=== PATIENT | female | born 1990 | race African-American/Black ===

== ENCOUNTER 2016-09-21 14:40 | Emergency (ER) | payer MEDICAID ==
[~2016-09-21] VITALS: Ht 170.2 cm; Wt 77.0 kg
[~2016-09-21 14:40] MED LIST: PREN-88 PO
[2016-09-21] MEDS ORDERED: PROV10 IM (14:48)
[2016-09-21] MEDS ORDERED: KETOROLAC 60MG/2ML VIAL IM ONE (15:45)
[2016-09-21 16:20] LABS: CLARITY URINE CLEAR (CLEAR); COLOR URINE YELLOW (YELLOW); GLUCOSE URINE NEGATIVE (NEGATIVE); KETONES URINE NEGATIVE (NEGATIVE); LEUKOCYTE ESTERASE URINE 2+ (NEGATIVE); NITRITE URINE NEGATIVE (NEGATIVE); OCCULT BLOOD URINE NEGATIVE (NEGATIVE); PH URINE 6.5 (4.5-8.0); PROTEIN URINE NEGATIVE (NEGATIVE); SPECIFIC GRAVITY URINE 1.019 (1.005-1.030); UROBILINOGEN URINE 0.2 E.U./dL (0.2-1.0)
[2016-09-21 16:23] LABS: BASOPHILS % 0.3 % (0.0-2.0); HEMATOCRIT. 42.1 % (36.0-48.0); HEMOGLOBIN. 14.1 g/dL (12.0-16.0); LYMPHOCYTES % 30.2 % (20.0-50.0); MEAN CORPUSCULAR HEMOGLOBIN 29.2 pg (28.0-32.0); MEAN CORPUSCULAR VOLUME 87.1 fL (81.0-99.0); MEAN PLATELET VOLUME 9.5 fl (7.4-10.4); NEUTROPHILS % 61.5 % (40.0-76.0); PLATELET 173 x1000/uL (130-400); RED BLOOD CELL COUNT 4.84 mill/uL (4.2-5.4); RED CELL DISTRIBUTION WIDTH 13.6 % (11.6-14.6)
[2016-09-21 16:53] LABS: *AMPHETAMINES SCREEN URINE NEGATIVE (NEGATIVE); *BARBITURATES SCREEN URINE NEGATIVE (NEGATIVE); *BENZODIAZEPINES SCREEN URINE NEGATIVE (NEGATIVE); *COCAINE SCREEN URINE NEGATIVE (NEGATIVE); METHADONE URINE SCREEN NEGATIVE (NEGATIVE); OPIATES URINE SCREEN NEGATIVE (NEGATIVE); PHENCYCLIDINE URINE SCREEN NEGATIVE (NEGATIVE)
[2016-09-21 16:54] LABS: CANNABINOID URINE SCREEN PRESUMTIVE POSITIVE (NEGATIVE)
[2016-09-21 17:11] LABS: CARBON DIOXIDE 27 mEq/L (21-32); CHLORIDE 110 mEq/L (98-107)
[2016-09-21 18:19] VITALS: BP 128/68
== END 2016-09-21 18:20 | disposition home or self-care (01) ==
LOC: ER 14:43
DX: R51 Headache (principal); R11.0 Nausea
CPT/HCPCS: 36415; 70450; 80053; 80305; 81001; 81025; 85025; 96372; 99285; J1885; Z7610

== ENCOUNTER 2017-02-01 13:11 | Emergency (ER) | payer MEDICAID ==
[~2017-02-01] VITALS: Ht 170.2 cm; Wt 76.0 kg
[~2017-02-01 13:11] MED LIST changes: +PROV10 IM
[2017-02-01 13:14] VITALS: BP 103/57
== END 2017-02-01 17:58 | disposition left against medical advice (07) ==
LOC: ER 14:09
DX: R07.9 Chest pain, unspecified (principal); Z53.21 Procedure and treatment not carried out due to patient leaving prior to being seen by health care provider
CPT/HCPCS: 93005

== ENCOUNTER 2017-09-23 11:05 | Emergency (ER) | payer SELFPAY ==
[~2017-09-23] VITALS: Ht 162.6 cm; Wt 76.0 kg
[2017-09-23] MEDS ORDERED: BACITRACIN ZINC OINT UDPKT TOP ONE (12:30)
[2017-09-23] MEDS ORDERED: LIDOCAINE HCL 1%/EPI 1:200,000 30 ML VIAL MC ONE (12:30)
[2017-09-23] MEDS ORDERED: LORAZEPAM 1MG TABLET PO ONE (12:30)
[2017-09-23] MEDS ORDERED: ACETAMINOPHEN 325MG TABLET PO ONE (12:30)
[2017-09-23] MEDS ORDERED: TETANUS, DIPHTHERIA, PERTUSSIS VAC/PF 0.5ML (>7YR OLD) IM ONE (12:30)
[2017-09-23] MEDS ORDERED: IBUPROFEN 600MG TABLET PO ONE (12:30)
[2017-09-23] MEDS ORDERED: LIDOCAINE HCL 1% 20ML VIAL (Pyxis) INJ INFIL ONE (15:00)
[2017-09-23] MEDS ORDERED: LIDOCAINE HCL/PF 1% 10 MG/ML 5ML VIAL IJ ONE (15:00)
[2017-09-23 15:22] VITALS: BP 119/77
== END 2017-09-23 15:27 | disposition home or self-care (01) ==
LOC: ER 11:05
DX: S51.811A Laceration without foreign body of right forearm, initial encounter (principal); W01.110A Fall on same level from slipping, tripping and stumbling with subsequent striking against sharp glass, initial encounter; Y93.89 Activity, other specified; Y92.018 Other place in single-family (private) house as the place of occurrence of the external cause
CPT/HCPCS: 12005; 73090; 81025; 90471; 90715; 99284; J3490

== ENCOUNTER 2017-09-24 00:31 | Emergency (ER) | payer SELFPAY ==
[~2017-09-24] VITALS: Ht 170.2 cm; Wt 75.0 kg
[2017-09-24] MEDS ORDERED: IBUPROFEN 600MG TABLET PO ONE (05:30)
[2017-09-24 06:00] VITALS: BP 105/64
== END 2017-09-24 07:01 | disposition home or self-care (01) ==
LOC: ER 00:36
DX: Z48.00 Encounter for change or removal of nonsurgical wound dressing (principal); R03.0 Elevated blood-pressure reading, without diagnosis of hypertension
CPT/HCPCS: 99283

== ENCOUNTER 2017-10-04 11:51 | Emergency (ER) | payer SELFPAY ==
[~2017-10-04] VITALS: Ht 170.2 cm; Wt 74.9 kg
[2017-10-04 12:22] VITALS: BP 121/85
== END 2017-10-04 14:05 | disposition home or self-care (01) ==
LOC: ER 11:51
DX: Z48.02 Encounter for removal of sutures (principal)
CPT/HCPCS: 99282

== ENCOUNTER 2021-05-11 11:21 | Emergency (ER) | payer OTHER, MEDICAID ==
[~2021-05-11] VITALS: Ht 172.7 cm; Wt 73.0 kg
[2021-05-11] MEDS ORDERED: KETOROLAC 15MG/ML VIAL IV ONE (11:45)
[2021-05-11] MEDS ORDERED: LACTATED RINGERS 1,000 ML IV SCH ×2 (11:45→16:45)
[2021-05-11 13:28] LABS: CHLORIDE 113 mEq/L (98-107)
[2021-05-11 13:36] LABS: BASOPHILS % 0.4 % (0.0-2.0); EOSINOPHILS % 2.3 % (0.0-5.0); HEMATOCRIT. 38.5 % (36.0-48.0); HEMOGLOBIN. 12.9 g/dL (12.0-16.0); LYMPHOCYTES % 37.6 % (20.0-50.0); MEAN CORPUSCULAR HEMOGLOBIN 30.6 pg (28.0-32.0); MEAN CORPUSCULAR VOLUME 91.1 fL (81.0-99.0); MEAN PLATELET VOLUME 8.3 fl (7.4-10.4); MONOCYTES % 7.8 % (2.0-8.0); NEUTROPHILS % 51.9 % (40.0-76.0); PLATELET 205 x1000/uL (130-400); RED BLOOD CELL COUNT 4.23 mill/uL (4.2-5.4); RED CELL DISTRIBUTION WIDTH 13.9 % (11.6-14.6)
[2021-05-11] MEDS ORDERED: MAGNESIUM/ALUMINUM HYDROXIDE/SIMETHICONE 30ML UDC PO STA (15:03)
[2021-05-11] MEDS ORDERED: OCTREOTIDE ACETATE 50 MCG/ML 1ML IV ONE (15:15)
[2021-05-11 15:59] VITALS: BP 135/76
[2021-05-11] MEDS ORDERED: KETOROLAC 15MG/ML VIAL IV NR (16:00)
[2021-05-11] MEDS ORDERED: ONDANSETRON HCL 4MG/2ML INJ IV ONE (16:45)
[2021-05-11] MEDS ORDERED: MAGNESIUM 2 G PREMIX 50 ML IV ONE (16:45)
[2021-05-11] MEDS ORDERED: IOHEXOL-300 100 ML BOTTLE ONE (19:27)
[2021-05-11] MEDS ORDERED: ONDA4TAB5 MT (20:09)
== END 2021-05-11 20:20 | disposition home or self-care (01) ==
LOC: ER 11:32
DX: I31.9 Disease of pericardium, unspecified (principal); R11.10 Vomiting, unspecified; R94.8 Abnormal results of function studies of other organs and systems
CPT/HCPCS: 36415; 71045; 74177; 76700; 80053; 83690; 83880; 84484; 85025; 93005; 96365; 96366; 96375; 99285; J1885; J2354; J2405; J3475; Q9967

== ENCOUNTER 2023-12-27 13:26 | Emergency (ER) | payer MEDICAID ==
[~2023-12-27] VITALS: Ht 175.3 cm; Wt 75.0 kg
[~2023-12-27 13:26] MED LIST changes: +ONDA4TAB5 MT
[2023-12-27 13:42] VITALS: BP 112/78; PULSE 68; RESP 16; TEMP 97.7; O2SAT 98
[2023-12-27] MEDS: IBUPROFEN 800MG TABLET PO ONE (14:59)
[2023-12-27] MEDS: ACETAMINOPHEN 325MG TABLET PO ONE (15:00)
[2023-12-27 15:30] LABS: BASOPHILS % 0.4 % (0.0-2.0); HEMATOCRIT. 41.1 % (36.0-48.0); HEMOGLOBIN. 13.5 g/dL (12.0-16.0); LYMPHOCYTES % 30.3 % (20.0-50.0); MEAN CORPUSCULAR HEMOGLOBIN 31.4 pg (28.0-32.0); MEAN CORPUSCULAR HGB CONC 32.8 g/dL (31.0-37.0); MEAN CORPUSCULAR VOLUME 95.8 fL (81.0-99.0); MEAN PLATELET VOLUME 8.3 fl (7.4-10.4); MONOCYTES % 6.5 % (2.0-8.0); NEUTROPHILS % 60.8 % (40.0-76.0); PLATELET 207 x1000/uL (130-400); RED BLOOD CELL COUNT 4.29 mill/uL (4.2-5.4); RED CELL DISTRIBUTION WIDTH 14.4 % (11.6-14.6); WHITE BLOOD COUNT 6.4 x1000/uL (4.5-11.0)
[2023-12-27 15:35] LABS: CHLORIDE 113 mEq/L (98-107); POTASSIUM 4.4 mEq/L (3.5-5.1); SODIUM 143 mEq/L (136-145)
[2023-12-27 15:36] LABS: CALCIUM 9.6 mg/dL (8.7-10.4); CARBON DIOXIDE 25 mEq/L (21-32)
[2023-12-27 15:40] LABS: HCG SCREEN NEGATIVE
[2023-12-27 15:41] LABS: CREATININE 1.1 mg/dL (0.6-1.0); GLUCOSE 91 mg/dL (70-105); UREA NITROGEN BLOOD 8 mg/dL (9-23)
[2023-12-27 15:43] LABS: ALANINE AMINOTRANSFERASE 11 IU/L (10-49); ALBUMIN 4.5 g/dL (3.2-4.8); ASPARTATE AMINOTRANSFERASE 14 IU/L (<34); BILIRUBIN DIRECT 0.2 mg/dL (<=3.0)
[2023-12-27 15:44] LABS: BILIRUBIN TOTAL 0.6 mg/dL (0.1-1.0)
[2023-12-27 16:48] LABS: CLARITY URINE TURBID (CLEAR); COLOR URINE YELLOW (YELLOW); GLUCOSE URINE NEGATIVE (NEGATIVE); KETONES URINE NEGATIVE (NEGATIVE); LEUKOCYTE ESTERASE URINE NEGATIVE (NEGATIVE); NITRITE URINE NEGATIVE (NEGATIVE); OCCULT BLOOD URINE NEGATIVE (NEGATIVE); PROTEIN URINE NEGATIVE (NEGATIVE); SPECIFIC GRAVITY URINE 1.024 (1.005-1.030)
[2023-12-27 17:02] LABS: AMORPHOUS SEDIMENT URINE 3+ /lpf; BACTERIA URINE TRACE; RBC URINE NONE SEEN /hpf (0-2); SQUAMOUS EPITHELIAL CELL URINE FEW /lpf (RARE/1+); WBC URINE 0-2 /hpf (0-2)
[2023-12-27] MEDS ORDERED: IBUP-2030 MT (17:17)
== END 2023-12-27 18:10 | disposition home or self-care (01) ==
LOC: ER 13:26
DX: R10.2 Pelvic and perineal pain (principal)
CPT/HCPCS: 36415; 76830; 76856; 80048; 80076; 81003; 84703; 85025; 99284